=== PATIENT | male | born 1955 | race Caucasian/White ===

== ENCOUNTER 2021-04-01 10:17 | Outpatient (CLI) | payer BC | END 2021-04-01 10:18 | disposition home or self-care (01) | LOC: LAB.S 10:17 | PROVIDERS: ATTEND Family Medicine | DX: D68.51 Activated protein C resistance (principal); I82.5Z1 Chronic embolism and thrombosis of unspecified deep veins of right distal lower extremity | CPT/HCPCS: 36416; 85610 ==

== ENCOUNTER 2021-04-05 10:53 | Outpatient (CLI) | payer BC | END 2021-04-05 10:54 | disposition home or self-care (01) | LOC: LAB.S 10:53 | PROVIDERS: ATTEND Family Medicine | DX: D68.51 Activated protein C resistance (principal); I82.5Z1 Chronic embolism and thrombosis of unspecified deep veins of right distal lower extremity | CPT/HCPCS: 36416; 85610 ==

== ENCOUNTER 2021-04-28 09:05 | Outpatient (CLI) | payer BC | END 2021-04-28 09:06 | disposition home or self-care (01) | LOC: LAB.S 09:05 | PROVIDERS: ATTEND Family Medicine | DX: D68.51 Activated protein C resistance (principal); I82.5Z1 Chronic embolism and thrombosis of unspecified deep veins of right distal lower extremity; Z86.718 Personal history of other venous thrombosis and embolism | CPT/HCPCS: 36416; 85610 ==

== ENCOUNTER 2021-05-25 12:02 | Outpatient (CLI) | payer BC | END 2021-05-25 12:03 | disposition home or self-care (01) | LOC: LAB.S 12:02 | PROVIDERS: ATTEND Family Medicine | DX: D68.51 Activated protein C resistance (principal); I82.5Z1 Chronic embolism and thrombosis of unspecified deep veins of right distal lower extremity | CPT/HCPCS: 36416; 85610 ==

== ENCOUNTER 2021-06-22 12:12 | Outpatient (CLI) | payer BC | END 2021-06-22 12:13 | disposition home or self-care (01) | LOC: LAB.S 12:12 | PROVIDERS: ATTEND Family Medicine | DX: D68.51 Activated protein C resistance (principal); I82.5Z1 Chronic embolism and thrombosis of unspecified deep veins of right distal lower extremity | CPT/HCPCS: 36416; 85610 ==

== ENCOUNTER 2021-07-21 13:01 | Outpatient (CLI) | payer BC | END 2021-07-21 13:02 | disposition home or self-care (01) | LOC: LAB.S 13:01 | PROVIDERS: ATTEND Family Medicine | DX: D68.51 Activated protein C resistance (principal); I82.5Z1 Chronic embolism and thrombosis of unspecified deep veins of right distal lower extremity | CPT/HCPCS: 36416; 85610 ==

== ENCOUNTER 2021-07-30 08:00 | Outpatient (CLI) | payer BC ==
--- NOTE | 2021-07-30 16:33 | XRAY Report ---
PROCEDURE: Foot 3 View LT INDICATIONS: PLANTAR FASCIITIS LEFT FOOT TECHNIQUE: 3 views of the foot were acquired. COMPARISON: None. FINDINGS: BONES: No acute, displaced fracture or dislocation. Small plantar calcaneal enthesophyte. SOFT TISSUES: No focal abnormality. IMPRESSION: 1.No acute osseous abnormality. If there is clinical concern for plantar fasciitis, consider magnetic resonance imaging. Reviewed by: Jeffry Dunn MD on 07/30/2021 4:31 PM PDT Approved by: Jeffry Dunn MD on 07/30/2021 4:31 PM PDT Station ID: [id number]
== END 2021-07-30 23:59 | disposition home or self-care (01) ==
LOC: DI.S 08:00
PROVIDERS: ATTEND Emergency Medicine
DX: M72.2 Plantar fascial fibromatosis (principal)

== ENCOUNTER 2021-08-04 15:25 | Outpatient (CLI) | payer BC | END 2021-08-04 15:26 | disposition home or self-care (01) | LOC: LAB.S 15:25 | PROVIDERS: ATTEND Family Medicine | DX: D68.51 Activated protein C resistance (principal); I82.5Z1 Chronic embolism and thrombosis of unspecified deep veins of right distal lower extremity | CPT/HCPCS: 36416; 85610 ==

== ENCOUNTER 2021-08-30 12:46 | Outpatient (CLI) | payer BC | END 2021-08-30 12:47 | disposition home or self-care (01) | LOC: LAB.S 12:46 | PROVIDERS: ATTEND Family Medicine | DX: D68.51 Activated protein C resistance (principal); I82.5Z1 Chronic embolism and thrombosis of unspecified deep veins of right distal lower extremity | CPT/HCPCS: 36416; 85610 ==

== ENCOUNTER 2021-09-29 16:29 | Outpatient (CLI) | payer BC | END 2021-09-29 16:30 | disposition home or self-care (01) | LOC: LAB.S 16:29 | PROVIDERS: ATTEND Family Medicine | DX: D68.51 Activated protein C resistance (principal); I82.5Z1 Chronic embolism and thrombosis of unspecified deep veins of right distal lower extremity | CPT/HCPCS: 36416; 85610 ==

== ENCOUNTER 2021-10-04 13:41 | Outpatient (CLI) | payer BC | END 2021-10-04 13:42 | disposition home or self-care (01) | LOC: LAB.S 13:41 | PROVIDERS: ATTEND Family Medicine | DX: D68.51 Activated protein C resistance (principal); I82.5Z1 Chronic embolism and thrombosis of unspecified deep veins of right distal lower extremity | CPT/HCPCS: 36416; 85610 ==

== ENCOUNTER 2021-10-11 09:35 | Outpatient (CLI) | payer BC | END 2021-10-11 09:36 | disposition home or self-care (01) | LOC: LAB.S 09:35 | PROVIDERS: ATTEND Family Medicine | DX: D68.51 Activated protein C resistance (principal); I82.5Z1 Chronic embolism and thrombosis of unspecified deep veins of right distal lower extremity | CPT/HCPCS: 36416; 85610 ==

== ENCOUNTER 2021-10-25 08:12 | Outpatient (CLI) | payer BC | END 2021-10-25 08:13 | disposition home or self-care (01) | LOC: LAB.S 08:12 | PROVIDERS: ATTEND Family Medicine | DX: D68.51 Activated protein C resistance (principal); I82.5Z1 Chronic embolism and thrombosis of unspecified deep veins of right distal lower extremity | CPT/HCPCS: 36416; 85610 ==

== ENCOUNTER 2021-11-01 09:04 | Outpatient (CLI) | payer BC | END 2021-11-01 09:05 | disposition home or self-care (01) | LOC: LAB.S 09:04 | PROVIDERS: ATTEND Family Medicine | DX: D68.51 Activated protein C resistance (principal); I82.5Z1 Chronic embolism and thrombosis of unspecified deep veins of right distal lower extremity | CPT/HCPCS: 36416; 85610 ==

== ENCOUNTER 2021-12-15 09:27 | Outpatient (CLI) | payer BC | END 2021-12-15 09:28 | disposition home or self-care (01) | LOC: LAB.S 09:27 | PROVIDERS: ATTEND Family Medicine | DX: D68.51 Activated protein C resistance (principal); I82.5Z1 Chronic embolism and thrombosis of unspecified deep veins of right distal lower extremity | CPT/HCPCS: 36415; 36416; 85610 ==

== ENCOUNTER 2022-01-14 14:57 | Outpatient (CLI) | payer BC | END 2022-01-14 14:58 | disposition home or self-care (01) | LOC: LAB 14:57 | PROVIDERS: ATTEND Family Medicine | DX: D68.51 Activated protein C resistance (principal); I82.5Z1 Chronic embolism and thrombosis of unspecified deep veins of right distal lower extremity | CPT/HCPCS: 36416; 85610 ==

== ENCOUNTER 2022-01-20 13:12 | Outpatient (CLI) | payer BC | END 2022-01-20 13:13 | disposition home or self-care (01) | LOC: LAB.S 13:12 | PROVIDERS: ATTEND Family Medicine | DX: D68.51 Activated protein C resistance (principal); I82.5Z1 Chronic embolism and thrombosis of unspecified deep veins of right distal lower extremity | CPT/HCPCS: 36416; 85610 ==

== ENCOUNTER 2022-02-10 14:09 | Outpatient (CLI) | payer BC | END 2022-02-10 14:10 | disposition home or self-care (01) | LOC: LAB.S 14:09 | PROVIDERS: ATTEND Family Medicine | DX: D68.51 Activated protein C resistance (principal); I82.5Z1 Chronic embolism and thrombosis of unspecified deep veins of right distal lower extremity | CPT/HCPCS: 36416; 85610 ==

== ENCOUNTER 2022-02-11 08:56 | Outpatient (CLI) | payer BC | END 2022-02-11 08:57 | disposition home or self-care (01) | LOC: LAB.S 08:56 | PROVIDERS: ATTEND Family Medicine | DX: D68.51 Activated protein C resistance (principal); I82.5Z1 Chronic embolism and thrombosis of unspecified deep veins of right distal lower extremity | CPT/HCPCS: 36416; 85610 ==

== ENCOUNTER 2022-02-14 08:53 | Outpatient (CLI) | payer BC | END 2022-02-14 08:54 | disposition home or self-care (01) | LOC: LAB.S 08:53 | PROVIDERS: ATTEND Family Medicine | DX: D68.51 Activated protein C resistance (principal); I82.5Z1 Chronic embolism and thrombosis of unspecified deep veins of right distal lower extremity | CPT/HCPCS: 36416; 85610 ==

== ENCOUNTER 2022-02-21 08:44 | Outpatient (CLI) | payer BC | END 2022-02-21 08:45 | disposition home or self-care (01) | LOC: LAB.S 08:44 | PROVIDERS: ATTEND Family Medicine | DX: D68.51 Activated protein C resistance (principal); I82.5Z1 Chronic embolism and thrombosis of unspecified deep veins of right distal lower extremity | CPT/HCPCS: 36416; 85610 ==

== ENCOUNTER 2022-03-01 08:15 | Outpatient (CLI) | payer BC | END 2022-03-01 08:16 | disposition home or self-care (01) | LOC: LAB.S 08:15 | PROVIDERS: ATTEND Family Medicine | DX: D68.51 Activated protein C resistance (principal); I82.5Z1 Chronic embolism and thrombosis of unspecified deep veins of right distal lower extremity | CPT/HCPCS: 36416; 85610 ==

== ENCOUNTER 2022-03-07 10:40 | Outpatient (CLI) | payer BC | END 2022-03-07 10:41 | disposition home or self-care (01) | LOC: LAB.S 10:40 | PROVIDERS: ATTEND Family Medicine | DX: D68.51 Activated protein C resistance (principal); I82.5Z1 Chronic embolism and thrombosis of unspecified deep veins of right distal lower extremity | CPT/HCPCS: 36416; 85610 ==

== ENCOUNTER 2022-03-28 09:01 | Outpatient (CLI) | payer BC | END 2022-03-28 09:02 | disposition home or self-care (01) | LOC: LAB.S 09:01 | PROVIDERS: ATTEND Family Medicine | DX: D68.51 Activated protein C resistance (principal); I82.5Z1 Chronic embolism and thrombosis of unspecified deep veins of right distal lower extremity | CPT/HCPCS: 36416; 85610 ==

== ENCOUNTER 2022-04-25 09:08 | Outpatient (CLI) | payer BC | END 2022-04-25 09:09 | disposition home or self-care (01) | LOC: LAB.S 09:08 | PROVIDERS: ATTEND Family Medicine | DX: D68.51 Activated protein C resistance (principal); I82.5Z1 Chronic embolism and thrombosis of unspecified deep veins of right distal lower extremity | CPT/HCPCS: 36416; 85610 ==

== ENCOUNTER 2022-05-02 09:00 | Outpatient (CLI) | payer BC | END 2022-05-02 09:01 | disposition home or self-care (01) | LOC: LAB.S 09:00 | PROVIDERS: ATTEND Family Medicine | DX: D68.51 Activated protein C resistance (principal); I82.5Z1 Chronic embolism and thrombosis of unspecified deep veins of right distal lower extremity | CPT/HCPCS: 36416; 85610 ==

== ENCOUNTER 2022-05-04 14:31 | Outpatient (CLI) | payer BC | END 2022-05-04 14:32 | disposition home or self-care (01) | LOC: LAB.S 14:31 | PROVIDERS: ATTEND Nurse Practitioner | DX: M10.9 Gout, unspecified (principal); M25.562 Pain in left knee | CPT/HCPCS: 36415; 84550 ==

== ENCOUNTER 2022-05-12 09:54 | Outpatient (CLI) | payer BC | END 2022-05-12 09:55 | disposition home or self-care (01) | LOC: LAB.S 09:54 | PROVIDERS: ATTEND Family Medicine | DX: D68.51 Activated protein C resistance (principal); I82.5Z1 Chronic embolism and thrombosis of unspecified deep veins of right distal lower extremity | CPT/HCPCS: 36416; 85610 ==

== ENCOUNTER 2022-06-08 14:17 | Outpatient (CLI) | payer BC | END 2022-06-08 14:18 | disposition home or self-care (01) | LOC: LAB.S 14:17 | PROVIDERS: ATTEND Family Medicine | DX: D68.51 Activated protein C resistance (principal); I82.5Z1 Chronic embolism and thrombosis of unspecified deep veins of right distal lower extremity | CPT/HCPCS: 36416; 85610 ==

== ENCOUNTER 2022-07-21 09:10 | Outpatient (CLI) | payer OTHER | END 2022-07-21 09:11 | disposition home or self-care (01) | LOC: LAB.S 09:10 | PROVIDERS: ATTEND Family Medicine | DX: D68.51 Activated protein C resistance (principal); I82.5Z1 Chronic embolism and thrombosis of unspecified deep veins of right distal lower extremity | CPT/HCPCS: 36416; 85610 ==

== ENCOUNTER 2022-07-31 09:46 | Emergency (ER) | payer OTHER ==
[2022-07-31 09:54] VITALS: BP 148/109
--- OUTSIDE RECORDS SUMMARY | 2022-07-31 10:29 | EXTERNAL MEDICAL SUMMARY RPT | Continuity of Care Document ---
:1955 Author Organization [facility] Address [address] [place] [address] Phone Care Team Providers Name Role Phone Unavailable Unavailable Unavailable Riky Mahajan-C, Iwona Unavailable Unavailable Candi Vargas, Marita Unavailable Unavailable Allergies No information. Encounters No information. Functional Status No information. Immunizations No information. Medications date description facility 2022-05-04 00:00 [facility] 2022-05-04 00:00 [facility] 2022-05-04 00:00 hydrochlorothiazide [facility] 2022-05-05 00:00 hydrochlorothiazide [facility] 2022-05-05 00:00 hydrochlorothiazide [facility] 2022-05-04 00:00 lisinopril [facility] [place] 2022-05-05 00:00 lisinopril [facility] 2022-05-05 00:00 lisinopril [facility] 2022-05-04 00:00 warfarin [facility] 2022-05-05 00:00 warfarin [facility] 2022-05-05 00:00 warfarin [facility] 2022-05-04 00:00 warfarin [facility] 2022-05-05 00:00 warfarin [facility] 2022-05-05 00:00 warfarin [facility] 2022-05-04 00:00 hydrochlorothiazide [facility] 2022-05-05 00:00 hydrochlorothiazide [facility] 2022-05-05 00:00 hydrochlorothiazide [facility] 2022-05-04 00:00 lisinopril [facility] 2022-05-05 00:00 lisinopril [facility] 2022-05-05 00:00 lisinopril [facility] 2022-05-04 00:00 [facility] 2022-05-04 00:00 [facility] 2022-05-04 00:00 [facility] 2022-05-04 00:00 [facility] 2022-05-04 00:00 gabapentin [facility] 2022-05-05 00:00 gabapentin [facility] 2022-05-05 00:00 gabapentin [facility] 2022-05-04 00:00 hydrochlorothiazide [facility] 2022-05-05 00:00 hydrochlorothiazide [facility] 2022-05-05 00:00 hydrochlorothiazide [facility] 2022-05-04 00:00 lisinopril [facility] 2022-05-05 00:00 lisinopril [facility] 2022-05-05 00:00 lisinopril [facility] 2022-05-04 00:00 lisinopril [facility] 2022-05-05 00:00 lisinopril [facility] 2022-05-05 00:00 lisinopril [facility] [place] [facility] 2022-05-04 00:00 hydrochlorothiazide [facility] 2022-05-05 00:00 hydrochlorothiazide [facility] 2022-05-05 00:00 hydrochlorothiazide [facility] 2022-05-04 00:00 atorvastatin [facility] [place] [facility] 2022-05-05 00:00 atorvastatin [facility] [place] [facility] 2022-05-05 00:00 atorvastatin [facility] [place] [facility] 2022-05-04 00:00 albuterol sulfate [facility] [place] [facility] 2022-05-05 00:00 albuterol sulfate [facility] [place] [facility] 2022-05-05 00:00 albuterol sulfate [facility] 2022-05-04 00:00 albuterol sulfate [facility] 2022-05-05 00:00 albuterol sulfate [facility] 2022-05-05 00:00 albuterol sulfate [facility] 2022-05-04 00:00 gabapentin [facility] [place] [facility] 2022-05-05 00:00 gabapentin [facility] 2022-05-05 00:00 gabapentin [facility] [place] [facility] 2022-05-04 00:00 atorvastatin [facility] [place] [facility] 2022-05-05 00:00 atorvastatin [facility] 2022-05-05 00:00 atorvastatin [facility] [place] [facility] 2022-05-04 00:00 gabapentin [facility] [place] [facility] 2022-05-05 00:00 gabapentin [facility] [place] [facility] 2022-05-05 00:00 gabapentin [facility] 2022-05-04 00:00 atorvastatin [facility] 2022-05-05 00:00 atorvastatin [facility] 2022-05-05 00:00 atorvastatin [facility] 2022-05-04 00:00 atorvastatin [facility] 2022-05-05 00:00 atorvastatin [facility] 2022-05-05 00:00 atorvastatin [facility] 2022-05-04 00:00 albuterol sulfate [facility] 2022-05-05 00:00 albuterol sulfate [facility] 2022-05-05 00:00 albuterol sulfate [facility] 2022-05-04 00:00 [facility] 2022-05-04 00:00 [facility] 2022-05-04 00:00 gabapentin [facility] 2022-05-05 00:00 gabapentin [facility] 2022-05-05 00:00 gabapentin [facility] 2022-05-04 00:00 albuterol sulfate [facility] 2022-05-05 00:00 albuterol sulfate [facility] 2022-05-05 00:00 albuterol sulfate [facility] 2022-05-04 00:00 warfarin [facility] 2022-05-05 00:00 warfarin [facility] 2022-05-05 00:00 warfarin [facility] 2022-05-04 00:00 warfarin [facility] 2022-05-05 00:00 warfarin [facility] 2022-05-05 00:00 warfarin [facility] 2022-05-04 00:00 warfarin [facility] 2022-05-05 00:00 warfarin [facility] 2022-05-05 00:00 warfarin [facility] 2022-05-04 00:00 warfarin [facility] 2022-05-05 00:00 warfarin [facility] 2022-05-05 00:00 warfarin [facility] 2022-05-04 00:00 warfarin [facility] 2022-05-05 00:00 warfarin [facility] 2022-05-05 00:00 warfarin [facility] [place] 2022-05-04 00:00 warfarin [facility] 2022-05-05 00:00 warfarin [facility] 2022-05-05 00:00 warfarin [facility] Problems date description facility 2022-05-04 00:00 Knee pain [facility] [place] 2022-05-04 00:00 Knee pain [facility] [place] 2022-05-04 00:00 Hypertensive disorder [facility] [place] 2022-05-04 00:00 Hypertensive disorder [facility] [place] 2022-05-04 00:00 Unspecified essential hypertension [facility] [place] 2022-05-04 00:00 Unspecified essential hypertension [facility] [place] 2022-05-04 00:00 Pain in joint involving lower leg [facility] 2022-05-04 00:00 Pain in joint involving lower leg [facility] 2022-05-04 00:00 Essential (primary) hypertension [facility] 2022-05-04 00:00 Essential (primary) hypertension [facility] 2022-05-04 00:00 Pain in left knee [facility] 2022-05-04 00:00 Pain in left knee [facility] Procedures date description facility 2022-05-04 00:00 Visit Code Hold [facility] 2022-05-04 00:00 Visit Code Hold [facility] Results/Labs test date author facility value unit interpret ation Result panel 1 (unknown) (no date) (unknown) Walk[facility] (no value) (units ([facility] nown) [facility] Result panel 2 (unknown) (no date) (unknown) Walk-In (no value) (units ([facility] nown) [facility] Social History date description facility 2022-05-04 00:00 Former smoker [facility] 2022-05-04 00:00 Former smoker [facility] Vital Signs date measurement value units 2022-05-04 00:00 BMI 37.10 kg/m2 2022-05-04 00:00 BP_diastolic 106 mmHg 2022-05-04 00:00 BP_systolic 178 mmHg 2022-05-04 00:00 heart_rate 86 /min 2022-05-04 00:00 height_metric 170.18 cm 2022-05-04 00:00 height_standard 67 in 2022-05-04 00:00 respiration_rate 14 /min 2022-05-04 00:00 temperature_metric 36.33 C 2022-05-04 00:00 temperature_standard 97.4 F 2022-05-04 00:00 weight_metric 107.05 kg 2022-05-04 00:00 weight_standard 236 lb
--- NOTE | 2022-07-31 13:28 | ED Physician Documentation ---
History of Present Illness - Stated complaint Stated Complaint: RT ANKLE LACERATION - Chief complaint Chief Complaint: Laceration - Additonal information Additional information: 66-year-old male presents emergency department for evaluation of a right medial foot/ankle laceration sustained when taking a hot out of the freezer which he dropped and subsequently stepped on. This patient is on Coumadin secondary to history of factor V Leiden deficiency. Bleeding currently controlled with pressure. Tetanus is up-to-date Review of Systems Skin: reports: Laceration (s) PD PAST MEDICAL HISTORY - Allergies Allergies/Adverse Reactions: Allergies Allergy/AdvReac Type Severity Reaction Status Date / Time meperidine [From Demerol] Allergy Rash Verified 07/31/22 09:55 sulfamethoxazole Allergy Hives Verified 07/31/22 09:55 [From Septra] trimethoprim [From Septra] Allergy Hives Verified 07/31/22 09:55 PD ED PE EXPANDED - Extremities Extremities: Right foot (V-shaped flap laceration right medial ankle. Neurovascularly intact. No active bleeding.) Results - Vitals Vitals: Vital Signs - 24 hr 07/31/22 09:52 Temperature 36.6 C Heart Rate 87 Respiratory 16 Rate Blood Pressure 148/109 H O2 Saturation 96 Oxygen O2 Source Room air Procedures - Laceration (location) right ankle Length in cm: 2.5 Wound type: Flap Neurovascular status: Sensory intact, Motor intact Tendon involvement: Tendon intact Wound preparation: Irrigated copiously NS Skin layer closure: Dermabond, Steri strips Other: Patient tolerated well, Tetanus UTD PD Medical Decision Making - ED course Complexity details: d/w patient, d/w family ED course: 66-year-old male presents to the emergency department for evaluation of a V- shaped laceration on the right medial ankle sustained when he dropped a pot at home that shattered. He is on Coumadin. I discussed the options of skin closure with him including Dermabond versus sutures and the patient elected Dermabond. Combination of Steri-Strips and Dermabond was placed over the wound with good approximation. We discussed the usual routine wound care as well as emergent return precautions. Tetanus is currently up-to-date Departure - Departure Disposition: 01 Home, Self Care Clinical Impression: Laceration of right foot Qualifiers: Encounter type: initial encounter Qualified Code(s): S91.311A - Laceration without foreign body, right foot, initial encounter Condition: Stable Instructions: ED Laceration Ext Skin Glue Comments: Ashok we closed your laceration with a combination of Steri-Strips and Dermabond or glue. This will simply wear away over the next week or so. It is important not to apply antibiotic ointment to the Dermabond it will cause it to wear away quicker. Try not to get your foot wet in the shower for the next week or so. In general I expect that this will heal well. If you develop any significant fevers, redness have milky drainage or concerns of infection then please return to the ER for a second evaluation.
== END 2022-07-31 13:50 | disposition home or self-care (01) ==
LOC: ED 09:46
DX: S91.311A Laceration without foreign body, right foot, initial encounter (principal); W45.8XXA Other foreign body or object entering through skin, initial encounter; Y93.89 Activity, other specified
CPT/HCPCS: 12001; 99281

== ENCOUNTER 2022-08-03 09:17 | Outpatient (CLI) | payer OTHER | END 2022-08-03 09:18 | disposition home or self-care (01) | LOC: LAB.S 09:17 | PROVIDERS: ATTEND Family Medicine | DX: D68.51 Activated protein C resistance (principal); I82.5Z1 Chronic embolism and thrombosis of unspecified deep veins of right distal lower extremity | CPT/HCPCS: 36416; 85610 ==

== ENCOUNTER 2022-08-10 09:53 | Outpatient (CLI) | payer OTHER | END 2022-08-10 09:54 | disposition home or self-care (01) | LOC: LAB.S 09:53 | PROVIDERS: ATTEND Family Medicine | DX: D68.51 Activated protein C resistance (principal); I82.5Z1 Chronic embolism and thrombosis of unspecified deep veins of right distal lower extremity | CPT/HCPCS: 36416; 85610 ==

== ENCOUNTER 2022-08-18 09:17 | Outpatient (CLI) | payer OTHER | END 2022-08-18 09:18 | disposition home or self-care (01) | LOC: LAB.S 09:17 | PROVIDERS: ATTEND Family Medicine | DX: D68.51 Activated protein C resistance (principal); I82.5Z1 Chronic embolism and thrombosis of unspecified deep veins of right distal lower extremity | CPT/HCPCS: 36416; 85610 ==

== ENCOUNTER 2022-09-01 11:45 | Outpatient (CLI) | payer OTHER | END 2022-09-01 11:46 | disposition home or self-care (01) | LOC: LAB.S 11:45 | PROVIDERS: ATTEND Family Medicine | DX: D68.51 Activated protein C resistance (principal); I82.5Z1 Chronic embolism and thrombosis of unspecified deep veins of right distal lower extremity | CPT/HCPCS: 36416; 85610 ==

== ENCOUNTER 2022-09-08 08:33 | Outpatient (CLI) | payer OTHER | END 2022-09-08 08:34 | disposition home or self-care (01) | LOC: LAB.S 08:33 | PROVIDERS: ATTEND Family Medicine | DX: D68.51 Activated protein C resistance (principal); I82.5Z1 Chronic embolism and thrombosis of unspecified deep veins of right distal lower extremity | CPT/HCPCS: 36416; 85610 ==

== ENCOUNTER 2022-09-26 08:47 | Outpatient (CLI) | payer OTHER | END 2022-09-26 08:48 | disposition home or self-care (01) | LOC: LAB.S 08:47 | PROVIDERS: ATTEND Family Medicine | DX: D68.51 Activated protein C resistance (principal); I82.5Z1 Chronic embolism and thrombosis of unspecified deep veins of right distal lower extremity | CPT/HCPCS: 36416; 85610 ==

== ENCOUNTER 2022-10-12 09:07 | Outpatient (CLI) | payer OTHER | END 2022-10-12 09:08 | disposition home or self-care (01) | LOC: LAB.S 09:07 | PROVIDERS: ATTEND Family Medicine | DX: D68.51 Activated protein C resistance (principal); I82.5Z1 Chronic embolism and thrombosis of unspecified deep veins of right distal lower extremity | CPT/HCPCS: 36416; 85610 ==

== ENCOUNTER 2022-11-07 10:14 | Outpatient (CLI) | payer OTHER | END 2022-11-07 10:15 | disposition home or self-care (01) | LOC: LAB.S 10:14 | PROVIDERS: ATTEND Family Medicine | DX: D68.51 Activated protein C resistance (principal); I82.5Z1 Chronic embolism and thrombosis of unspecified deep veins of right distal lower extremity | CPT/HCPCS: 36416; 85610 ==

== ENCOUNTER 2022-12-06 09:23 | Outpatient (CLI) | payer MEDICARE, OTHER | END 2022-12-06 09:24 | disposition home or self-care (01) | LOC: LAB.S 09:23 | PROVIDERS: ATTEND Family Medicine | DX: D68.51 Activated protein C resistance (principal); I82.5Z1 Chronic embolism and thrombosis of unspecified deep veins of right distal lower extremity | CPT/HCPCS: 36416; 85610 ==

== ENCOUNTER 2022-12-06 15:12 | Emergency (ER) | payer MEDICARE, OTHER ==
[2022-12-06 15:42] LABS: BASOPHILS % (AUTO) 0.3 %; EOSINOPHILS # (AUTO) 0.1 10^3/uL (0.0-0.7); EOSINOPHILS % (AUTO) 1.9 %; HCT - HEMATOCRIT 39.8 % (42.0-52.0); HGB - HEMOGLOBIN 13.3 g/dL (14.0-18.0); LYMPHOCYTES # (AUTO) 1.1 10^3/uL (1.5-3.5); LYMPHOCYTES % (AUTO) 15.4 %; MEAN CORPUSCULAR HEMOGLOBIN 32.5 pg (27.0-31.0); MEAN CORPUSCULAR HGB CONC 33.4 g/dL (32.0-36.0); MEAN CORPUSCULAR VOLUME 97.3 fL (80.0-94.0); MEAN PLATELET VOLUME 10.1 fL (7.4-11.4); MONOCYTES # (AUTO) 0.7 10^3/uL (0.0-1.0); MONOCYTES % (AUTO) 10.2 %; NEUTROPHILS # (AUTO) 5.2 10^3/uL (1.5-6.6); NEUTROPHILS % (AUTO) 71.6 %; PLT - PLATELET COUNT 158 10^3/uL (130-450); RED BLOOD COUNT 4.09 10^6/uL (4.70-6.10); WHITE BLOOD COUNT 7.3 x10^3/uL (4.8-10.8)
[2022-12-06 16:15] LABS: CALCIUM 9.3 mg/dL (8.5-10.3); CREATININE 0.7 mg/dL (0.6-1.3)
[2022-12-06] MEDS ORDERED: iohexoL-300 100 ML VIAL ONE (16:27)
[2022-12-06] MEDS ORDERED: iohexoL-300 100 ML VIAL IVP ONE (16:52)
--- NOTE | 2022-12-06 17:06 | CT Report ---
PROCEDURE: LOWER EXTREMITY W - RT INDICATIONS: NONHEALING WOUND TECHNIQUE: After administration of contrast 3 mm axial sections acquired of the right ankle, with coronal and sa gittal reformats. For radiation dose reduction, the following was used: automated exposure control, adjustment of mA and/or kV according to patient size. CONTRAST: 100ml Omni 300 COMPARISON: None. FINDINGS: Image quality: Excellent. Bones: No acute osseous fracture or dislocation. No focal cortical destruction is seen. No intraosse ous lesion. Soft tissues: Nonspecific heterogeneous edema is seen throughout the lower leg. Varicose veins are n oted throughout the medial and posterior glenoid. Numerous calcifications are seen in the subcutaneou s tissues surrounding the ankle. No significant edema is seen within the deep intermuscular fascial l hollings[place]. No focal nonenhancing fluid collection is seen. Three-vessel arterial enhancement is noted in the distal lower leg. The articular cartilages, ligaments, and tendons are not well evaluated on estrellita dard CT. The lower leg musculature is normal in bulk. No soft tissue gas. IMPRESSION: 1.Nonspecific soft tissue edema throughout the lower leg. No focal fluid collection. No signs of fasc iitis or osteomyelitis. 2.Prominent varicose veins throughout the simultaneous tissues, most notably medially and posteriorly . Consider venous Doppler ultrasound to evaluate for reflux or obstruction. 3.Diffuse subcutaneous soft tissue calcifications, which are of uncertain etiology. Some of these may represent phleboliths. Reviewed by: Andriy Aviles MD on 12/06/2022 5:04 PM PDT Approved by: Andriy Aviles MD on 12/06/2022 5:04 PM PDT Station ID: [id number]
--- NOTE | 2022-12-06 17:12 | ED Physician Documentation ---
PD HPI LOWER EXT INJURY - Stated complaint Stated Complaint: LOWER RT LEG PX / OPEN WOUND - Chief complaint Chief Complaint: Wound - History obtained from History obtained from: Patient - History of Present Illness PD HPI LOW EXT INJURY LOCATION: Right - Additional information Additional information: 67-year-old male with history of venous stasis presents for evaluation of right ankle wound. Patient states that he had an accidental injury where he was cut by a [employer] pot that fell. He states that intermittently over the last several months he has had issues with his previous wound reopening. He was sent in by his primary care doctor's office to evaluate for possible retained foreign body. He states that 5 days ago the wound on his right medial ankle began to open up again and is very painful. Last on antibiotics 2 months ago. Review of Systems Constitutional: denies: Fever, Chills Cardiac: denies: Chest pain / pressure, Palpitations Respiratory: denies: Dyspnea, Cough, Wheezing Skin: reports: Lesions. denies: Rash, Abrasion (s), Laceration (s) Musculoskeletal: reports: Joint pain. denies: Extremity pain, Joint swelling PD PAST MEDICAL HISTORY - Present Medications Home Medications: Ambulatory Orders Medication Instructions Recorded Confirmed Bacitracin Zinc Oint 1 applic TOP BID #1 each 12/06/22 Doxycycline Hyclate [Vibramycin] 100 mg PO BID #20 cap 12/06/22 - Allergies Allergies/Adverse Reactions: Allergies Allergy/AdvReac Type Severity Reaction Status Date / Time meperidine [From Demerol] Allergy Rash Verified 12/06/22 15:18 sulfamethoxazole Allergy Hives Verified 12/06/22 15:18 [From Septra] trimethoprim [From Janra] Allergy Hives Verified 12/06/22 15:18 PD ED PE NORMAL - Vitals Vital signs reviewed: Yes - General General: Alert and oriented X 3, No acute distress, Well developed/nourished - HEENT HEENT: Atraumatic - Cardiac Cardiac: RRR, No murmur - Respiratory Respiratory: No respiratory distress, Clear bilaterally - Abdomen Abdomen: Soft, Non tender, Non distended - Extremities Extremities: No deformity, Normal ROM s pain, No edema, Other (Small 1cm ulceration on medial R ankle. 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, No motor deficit, No sensory deficit, Normal speech Results - Vitals Vitals: Vital Signs - 24 hr 12/06/22 15:18 Temperature 36.6 C Heart Rate 92 Respiratory 16 Rate Blood Pressure 134/90 H O2 Saturation 96 Oxygen O2 Source Room air - Labs Labs: Laboratory Tests 12/06/22 12/06/22 12/06/22 13:38 13:38 15:38 WBC 7.3 RBC 4.09 L Hgb 13.3 L Hct 39.8 L MCV 97.3 H MCH 32.5 H MCHC 33.4 RDW 14.0 Plt Count 158 MPV 10.1 Neut # (Auto) 5.2 Lymph # (Auto) 1.1 L [place] # (Auto) 0.7 Eos # (Auto) 0.1 Baso # (Auto) 0.0 Absolute Nucleated RBC 0.00 Nucleated RBC % 0.0 ESR 9 Sodium 136 Potassium 4.0 Chloride 102 Carbon Dioxide 29 Anion Gap 5.0 L BUN 15 Creatinine 0.7 Estimated GFR (MDRD) 113 Glucose 97 Calcium 9.3 C-Reactive Protein 12/06/22 15:38 WBC RBC Hgb Hct MCV MCH MCHC RDW Plt Count MPV Neut # (Auto) Lymph # (Auto) [place] # (Auto) Eos # (Auto) Baso # (Auto) Absolute Nucleated RBC Nucleated RBC % ESR Sodium Potassium Chloride Carbon Dioxide Anion Gap BUN Creatinine Estimated GFR (MDRD) Glucose Calcium C-Reactive Protein 1.0 PD Medical Decision Making - ED course Complexity details: reviewed results, re-evaluated patient, considered differential, d/w patient ED course: Nontoxic patient presenting for evaluation of intermittent wound reopening in his ankle. There is concern from his primary care physician about possible retained foreign body. I do not palpate a foreign body, however due to the patient's nonhealing wound will order Ct scan and will order sed/crp to evaluate for possible bony infection. I suspect that patient's presentation is related to vascular disease. His pulses are diminished to palpation in his lower extremity. Additionally patient states that occasionally when he walks he gets cramps in his legs. He says that he believes he has been diagnosed with peripheral vascular disease in the past, but does not currently see a vascular surgeon. Laboratory work is reviewed, unremarkable. Sed rate and CRP are within normal limits. CT of the ankle shows no retaied foreign body. Patient counseled of his lab and imaging results. I noted that he may possibly have peripheral arterial disease and recommended that he speak with his primary care physician about referral to vascular surgery. In the meantime will give patient topical and p.o. antibiotics. Departure - Departure Disposition: Home, Self Care Clinical Impression: Ankle wound Condition: Stable Instructions: ED Wound Care Prescriptions: Bacitracin Zinc Oint 1 applic TOP BID #1 each Doxycycline Hyclate [Vibramycin] 100 mg PO BID #20 cap Comments: I RECOMMEND FOLLOWING UP WITH A VASCULAR SURGEON IF YOU CONTINUE TO HAVE ISSUES WITH WOUND HEALING. YOU HAD WEAKER PULSES THAN EXPECTED IN YOUR FOOT WHICH CAN CONTRIBUTE TO POOR WOUND HEALING. Forms: PCP List
[2022-12-06 17:38] VITALS: BP 140/98
== END 2022-12-06 17:34 | disposition home or self-care (01) ==
LOC: ED 15:12
DX: L98.499 Non-pressure chronic ulcer of skin of other sites with unspecified severity (principal); D68.51 Activated protein C resistance; I82.5Z1 Chronic embolism and thrombosis of unspecified deep veins of right distal lower extremity
CPT/HCPCS: 36415; 36416; 73701; 80048; 85025; 85610; 85651; 86140; 99284; Q9967

== ENCOUNTER 2022-12-16 08:57 | Outpatient (CLI) | payer MEDICARE, OTHER | END 2022-12-16 08:58 | disposition home or self-care (01) | LOC: LAB.S 08:57 | PROVIDERS: ATTEND Family Medicine | DX: D68.51 Activated protein C resistance (principal); I82.5Z1 Chronic embolism and thrombosis of unspecified deep veins of right distal lower extremity | CPT/HCPCS: 36416; 85610 ==

== ENCOUNTER 2023-01-05 11:37 | Outpatient (CLI) | payer MEDICARE, OTHER | END 2023-01-05 11:38 | disposition home or self-care (01) | LOC: LAB.S 11:37 | PROVIDERS: ATTEND Family Medicine | DX: D68.51 Activated protein C resistance (principal); I82.5Z1 Chronic embolism and thrombosis of unspecified deep veins of right distal lower extremity | CPT/HCPCS: 36416; 85610 ==

== ENCOUNTER 2023-01-17 12:20 | Outpatient (CLI) | payer MEDICARE, OTHER | END 2023-01-17 12:21 | disposition home or self-care (01) | LOC: LAB 12:20 | PROVIDERS: ATTEND Family Medicine | DX: D68.51 Activated protein C resistance (principal); I82.5Z1 Chronic embolism and thrombosis of unspecified deep veins of right distal lower extremity | CPT/HCPCS: 36416; 85610 ==

== ENCOUNTER 2023-01-26 08:19 | Outpatient (CLI) | payer MEDICARE, OTHER | END 2023-01-26 08:20 | disposition home or self-care (01) | LOC: LAB.S 08:19 | PROVIDERS: ATTEND Family Medicine | DX: D68.51 Activated protein C resistance (principal); I82.5Z1 Chronic embolism and thrombosis of unspecified deep veins of right distal lower extremity | CPT/HCPCS: 36416; 85610 ==

== ENCOUNTER 2023-02-20 14:33 | Outpatient (CLI) | payer MEDICARE, OTHER | END 2023-02-20 14:34 | disposition home or self-care (01) | LOC: LAB.S 14:33 | PROVIDERS: ATTEND Family Medicine | DX: D68.51 Activated protein C resistance (principal); I82.5Z1 Chronic embolism and thrombosis of unspecified deep veins of right distal lower extremity | CPT/HCPCS: 36416; 85610 ==

== ENCOUNTER 2023-02-27 08:00 | Outpatient (CLI) | payer MEDICARE, OTHER ==
--- NOTE | 2023-02-27 17:08 | XRAY Report ---
PROCEDURE: Chest 2 View X-Ray INDICATIONS: CHEST CONGESTION TECHNIQUE: 2 views of the chest were acquired. COMPARISON: None. FINDINGS: Surgical changes and devices: None. Lungs and pleura: No pleural effusions or pneumothorax. Lungs are clear. Mediastinum: Mediastinal contours appear normal. Heart size is normal. Bones and chest wall: No suspicious bony lesions. Overlying soft tissues appear unremarkable. IMPRESSION: No acute cardiopulmonary process. Reviewed by: Mihai Mcallister on 02/27/2023 5:07 PM PDT Approved by: Mihai Mcallister on 02/27/2023 5:07 PM PDT Station ID: [id number]
--- NOTE | 2023-02-27 17:09 | XRAY Report ---
PROCEDURE: Ribs 2 View LT INDICATIONS: CHEST WALL PAIN, LEFT TECHNIQUE: 4 views of the left ribs were acquired. COMPARISON: None. FINDINGS: Surgical changes and devices: None. Bones and chest wall: No fractures or dislocations. No suspicious bony lesions. Overlying soft tis sues appear unremarkable. Lungs and pleura: The visualized lung appears clear. No pleural effusions or pneumothorax are visib le. IMPRESSION: No displaced fracture or pneumothorax. Reviewed by: Mihai Mcallister on 02/27/2023 5:08 PM PDT Approved by: Mihai Mcallister on 02/27/2023 5:08 PM PDT Station ID: [id number]
== END 2023-02-27 23:59 | disposition home or self-care (01) ==
LOC: DI.S 08:00
PROVIDERS: ATTEND Physician Assistant Medical
DX: R07.89 Other chest pain (principal); R09.89 Other specified symptoms and signs involving the circulatory and respiratory systems

== ENCOUNTER 2023-03-20 09:41 | Outpatient (CLI) | payer MEDICARE, OTHER | END 2023-03-20 09:42 | disposition home or self-care (01) | LOC: LAB.S 09:41 | PROVIDERS: ATTEND Family Medicine | DX: D68.51 Activated protein C resistance (principal); I82.5Z1 Chronic embolism and thrombosis of unspecified deep veins of right distal lower extremity | CPT/HCPCS: 36416; 85610 ==

== ENCOUNTER 2023-04-11 08:00 | Outpatient (CLI) | payer MEDICARE, OTHER | END 2023-04-11 23:59 | disposition home or self-care (01) | LOC: LAB.F 08:00 | PROVIDERS: ATTEND Nurse Practitioner Acute Care | DX: Z79.01 Long term (current) use of anticoagulants (principal); Z86.718 Personal history of other venous thrombosis and embolism; D68.51 Activated protein C resistance ==

== ENCOUNTER 2023-04-18 13:50 | Outpatient (CLI) | payer MEDICARE, OTHER | END 2023-04-18 13:51 | disposition home or self-care (01) | LOC: LAB.S 13:50 | PROVIDERS: ATTEND Nurse Practitioner Acute Care | DX: D68.51 Activated protein C resistance (principal); Z79.01 Long term (current) use of anticoagulants; Z86.718 Personal history of other venous thrombosis and embolism | CPT/HCPCS: 36416; 85610 ==

== ENCOUNTER 2023-05-09 08:00 | Outpatient (CLI) | payer MEDICARE, OTHER | END 2023-05-09 08:01 | disposition home or self-care (01) | LOC: LAB.F 08:00 | PROVIDERS: ATTEND Nurse Practitioner Acute Care | DX: D68.51 Activated protein C resistance (principal); Z79.01 Long term (current) use of anticoagulants; Z86.718 Personal history of other venous thrombosis and embolism ==

== ENCOUNTER 2023-05-09 08:45 | Outpatient (CLI) | payer MEDICARE, OTHER ==
[2023-05-09 14:23] LABS: BASOPHILS % (AUTO) 0.7 %; EOSINOPHILS # (AUTO) 0.1 10^3/uL (0.0-0.7); EOSINOPHILS % (AUTO) 3.1 %; HCT - HEMATOCRIT 41.6 % (42.0-52.0); HGB - HEMOGLOBIN 13.7 g/dL (14.0-18.0); LYMPHOCYTES # (AUTO) 1.5 10^3/uL (1.5-3.5); LYMPHOCYTES % (AUTO) 33.9 %; MEAN CORPUSCULAR HEMOGLOBIN 32.5 pg (27.0-31.0); MEAN CORPUSCULAR HGB CONC 32.9 g/dL (32.0-36.0); MEAN CORPUSCULAR VOLUME 98.8 fL (80.0-94.0); MEAN PLATELET VOLUME 11.1 fL (7.4-11.4); MONOCYTES # (AUTO) 0.5 10^3/uL (0.0-1.0); MONOCYTES % (AUTO) 11.5 %; NEUTROPHILS # (AUTO) 2.2 10^3/uL (1.5-6.6); NEUTROPHILS % (AUTO) 50.1 %; PLT - PLATELET COUNT 160 10^3/uL (130-450); RED BLOOD COUNT 4.21 10^6/uL (4.70-6.10); RED CELL DISTRIBUTION WIDTH 13.5 % (12.0-15.0); WHITE BLOOD COUNT 4.5 x10^3/uL (4.8-10.8)
[2023-05-09 14:34] LABS: ALBUMIN 4.1 g/dL (3.2-5.5); ALBUMIN/GLOBULIN RATIO 1.8 (1.0-2.2); ALKALINE PHOSPHATASE 69 IU/L (42-121); ALT ALANINE AMINOTRANSFERASE 26 IU/L (10-60); AST ASPARTATE AMINOTRANSFERASE 25 IU/L (10-42); BILIRUBIN,TOTAL 0.5 mg/dL (0.2-1.0); BUN - BLOOD UREA NITROGEN 17 mg/dL (6-20); CALCIUM 9.3 mg/dL (8.5-10.3); CARBON DIOXIDE - CO2 31 mmol/L (21-32); CHLORIDE 103 mmol/L (101-111); CHOL/HDL RATIO 3.2 (<5.0); CHOLESTEROL 175 mg/dL; CREATININE 0.7 mg/dL (0.6-1.3); GFR - MDRD 113 (>89); GLUCOSE 84 mg/dL (74-104); HDL CHOLESTEROL 55 mg/dL; LDL CHOLESTEROL,CALCULATED 61 mg/dL; LDL/HDL RATIO 1.1 (<3.6); POTASSIUM 4.4 mmol/L (3.5-4.5); SODIUM 142 mmol/L (135-145); TOTAL PROTEIN 6.4 g/dL (6.4-8.9); TRIGLYCERIDES 297 mg/dL (48-352); VLDL CHOLESTEROL 59 mg/dL
== END 2023-05-09 08:46 | disposition home or self-care (01) ==
LOC: LAB.S 08:45
PROVIDERS: ATTEND Nurse Practitioner Acute Care
DX: M1A.9XX0 Chronic gout, unspecified, without tophus (tophi) (principal); Z13.228 Encounter for screening for other metabolic disorders; Z13.220 Encounter for screening for lipoid disorders; Z13.29 Encounter for screening for other suspected endocrine disorder; Z13.0 Encounter for screening for diseases of the blood and blood-forming organs and certain disorders involving the immune mechanism; E78.5 Hyperlipidemia, unspecified
CPT/HCPCS: 36415; 80053; 80061; 83721; 84443; 84550; 85025

== ENCOUNTER 2023-05-12 14:25 | Outpatient (CLI) | payer MEDICARE, OTHER | END 2023-05-12 14:26 | disposition home or self-care (01) | LOC: LAB.S 14:25 | PROVIDERS: ATTEND Nurse Practitioner Acute Care | DX: D68.51 Activated protein C resistance (principal); I82.5Z1 Chronic embolism and thrombosis of unspecified deep veins of right distal lower extremity | CPT/HCPCS: 36416; 85610 ==

== ENCOUNTER 2023-05-29 08:00 | Outpatient (CLI) | payer MEDICARE, OTHER | END 2023-05-29 08:01 | disposition home or self-care (01) | LOC: LAB.F 08:00 | PROVIDERS: ATTEND Nurse Practitioner Acute Care | DX: D68.51 Activated protein C resistance (principal); Z86.718 Personal history of other venous thrombosis and embolism; Z79.01 Long term (current) use of anticoagulants ==

== ENCOUNTER 2023-07-14 15:29 | Outpatient (CLI) | payer MEDICARE, OTHER ==
--- NOTE | 2023-07-14 17:02 | Ultrasound Report ---
PROCEDURE: Duplex Ext Veins Bilateral INDICATIONS: EDEMA TECHNIQUE: Real-time imaging, as well as color and pulse Doppler interrogation, were performed of the deep veins of both legs from the inguinal ligament to the popliteal fossa. Attempted visualization of the calf veins was performed. COMPARISON: None FINDINGS: The deep veins are normally compressible, and free of intraluminal thrombus. Color and pu lse Doppler demonstrate normal phasic intravascular flow. There is normal augmentation response to d istal compression maneuver. Superficial venous thrombosis noted in the right calf IMPRESSION: No deep venous thrombosis of the visualized lower extremities. Right calf subcutaneous superficial venous thrombosis noted Reviewed by: Ashok Carvajal MD on 07/14/2023 4:01 PM [place] Approved by: Ashok Carvajal MD on 07/14/2023 4:01 PM [place] Station ID: [id number]
== END 2023-07-14 15:30 | disposition home or self-care (01) ==
LOC: DI 15:29
PROVIDERS: ATTEND Nurse Practitioner Acute Care
DX: Z86.718 Personal history of other venous thrombosis and embolism (principal); I82.811 Embolism and thrombosis of superficial veins of right lower extremity
CPT/HCPCS: 93970

== ENCOUNTER 2023-08-08 12:27 | Outpatient (CLI) | payer MEDICARE, OTHER ==
--- NOTE | 2023-08-08 13:42 | Ultrasound Report ---
PROCEDURE: Duplex Ext Veins Right INDICATIONS: R LEG PAIN TECHNIQUE: Real-time imaging, as well as color and pulse Doppler interrogation, were performed of the lower extr emity deep veins from the inguinal ligament to the popliteal fossa. Attempted visualization of the ca lf veins was performed. COMPARISON: None. FINDINGS: Occlusive thrombus is present throughout the right greater saphenous vein which appears tor tuous and ectatic throughout its course. Thrombus is present to the level of the confluence with the common femoral vein. The deep veins are normally compressible, and free of intraluminal thrombus. Color and pulse Dopple r demonstrate normal phasic intraluminal flow. There is normal augmentation response to distal compr ession maneuver. Edema is noted throughout the subcutaneous tissues. IMPRESSION: 1. Occlusive thrombus within the right greater saphenous vein. 2. No DVT of the right lower extremity. Reviewed by: Yumiko Plasencia MD on 08/08/2023 1:41 PM PDT Approved by: Yumiko Plasencia MD on 08/08/2023 1:41 PM PDT Station ID: [id number]
== END 2023-08-08 12:28 | disposition home or self-care (01) ==
LOC: DI 12:27
PROVIDERS: ATTEND Internal Medicine
DX: I82.811 Embolism and thrombosis of superficial veins of right lower extremity (principal)

== ENCOUNTER 2023-08-08 13:29 | Emergency (ER) | payer MEDICARE, OTHER ==
[2023-08-08] MEDS ORDERED: iohexoL-300 100 ML VIAL ONE (14:07)
[2023-08-08 14:13] LABS: BASOPHILS % (AUTO) 0.3 %; EOSINOPHILS # (AUTO) 0.2 10^3/uL (0.0-0.7); EOSINOPHILS % (AUTO) 3.3 %; HCT - HEMATOCRIT 40.4 % (42.0-52.0); HGB - HEMOGLOBIN 13.4 g/dL (14.0-18.0); LYMPHOCYTES # (AUTO) 1.3 10^3/uL (1.5-3.5); LYMPHOCYTES % (AUTO) 20.6 %; MEAN CORPUSCULAR HEMOGLOBIN 32.2 pg (27.0-31.0); MEAN CORPUSCULAR HGB CONC 33.2 g/dL (32.0-36.0); MEAN CORPUSCULAR VOLUME 97.1 fL (80.0-94.0); MEAN PLATELET VOLUME 10.5 fL (7.4-11.4); MONOCYTES # (AUTO) 0.7 10^3/uL (0.0-1.0); MONOCYTES % (AUTO) 11.3 %; NEUTROPHILS # (AUTO) 3.9 10^3/uL (1.5-6.6); PLT - PLATELET COUNT 151 10^3/uL (130-450); RED BLOOD COUNT 4.16 10^6/uL (4.70-6.10); RED CELL DISTRIBUTION WIDTH 13.4 % (12.0-15.0); WHITE BLOOD COUNT 6.1 x10^3/uL (4.8-10.8)
[2023-08-08 14:25] LABS: ALBUMIN 3.9 g/dL (3.2-5.5); ALBUMIN/GLOBULIN RATIO 1.5 (1.0-2.2); BILIRUBIN,TOTAL 0.9 mg/dL (0.2-1.0); CALCIUM 9.5 mg/dL (8.5-10.3); CREATININE 0.6 mg/dL (0.6-1.3); MAGNESIUM 1.5 mg/dL (1.7-2.3); POTASSIUM 4.1 mmol/L (3.5-4.5); TOTAL PROTEIN 6.5 g/dL (6.4-8.9)
--- NOTE | 2023-08-08 14:28 | ED Physician Documentation ---
History of Present Illness - Stated complaint Stated Complaint: RT LEG CLOT - Chief complaint Chief Complaint: Ext Problem - Additonal information Additional information: 67-year-old male with history of factor V not currently anticoagulated on anything presents emergency department after finding out that he has an enlarged clot to his right lower extremity. Past medical history of venous insufficiency, factor V, hypertension, hypercholesterolemia, asthma. Patient recently saw criminal justice department chair who removed him from his Coumadin he was on this since 1992 hematology advised that he does not need anymore because of some sort of genetic mutation. He has been off Coumadin since early June he has a known saphenous venous blood clot to the left lower extremity in his calf region and he sees vascular surgeon with Dr. Jackie Valverde and is planning on having a radiofrequency ablation as the holt venectomy to bilateral lower extremities. Patient says that he has been having increased right lower extremity pain as well as increased shortness of breath now for the last week or so he had an outpatient venous duplex complete today and they sent him to the emergency department for possible pulmonary embolism given patient's worsening shortness of breath. Patient says that he was recently started on Advair inhaler but insurance has not been approving it.He denies any chest pain no nausea vomiting diarrhea. PD PAST MEDICAL HISTORY - Past Medical History Past Medical History: Yes Cardiovascular: Hypertension, High cholesterol Respiratory: Asthma - Past Surgical History Past Surgical History: Yes General: Colonoscopy Ortho: Knee replacement - Present Medications Home Medications: Ambulatory Orders Medication Instructions Recorded Confirmed Albuterol 2.5 mg INH ONCE PRN 01/04/23 06/16/23 Atorvastatin Calcium 40 mg PO DAILY 01/04/23 06/16/23 Gabapentin [Neurontin] 300 mg PO BID 01/04/23 06/16/23 Glucos Sul 2Kcl/MSM/Chond/C/Mn 1 each PO QID 01/04/23 06/16/23 [Glucosamine Chondroitin Cap] Krill/Om-3/Dha/Epa/Phospho/Ast 1,000 mg PO DAILY 01/04/23 06/16/23 [Krill Oil 500 mg Softgel] Lactobacillus Combination No.4 1 cap PO DAILY 01/04/23 06/16/23 [Probiotic] Lisinopril [Zestril] 20 mg PO BID 01/04/23 06/16/23 Multivitamin 1 tab PO DAILY 01/04/23 06/16/23 Omeprazole 20 mg PO DAILY 01/04/23 06/16/23 Sildenafil Citrate [Sildenafil] 20 mg PO DAILY MDD 2-5 01/04/23 06/16/23 Vitamin B Complex 1 each PO DAILY 01/04/23 06/16/23 Warfarin [Coumadin] 5 mg PO QPM 01/04/23 06/16/23 Warfarin [Coumadin] 6 mg PO QPM 01/04/23 06/16/23 allopurinoL [Allopurinol] 300 mg PO DAILY 01/04/23 06/16/23 hydroCHLOROthiazide [Hydrodiuril] 25 mg PO DAILY 01/04/23 06/16/23 amLODIPine [Norvasc] 5 mg PO DAILY 06/16/23 06/16/23 Apixaban [Eliquis] 10 mg PO BID 30 Days #120 tab 08/08/23 - Allergies Allergies/Adverse Reactions: Allergies Allergy/AdvReac Type Severity Reaction Status Date / Time meperidine [From Demerol] Allergy Rash Verified 08/08/23 13:48 sulfamethoxazole Allergy Hives Verified 08/08/23 13:48 [From Septra] trimethoprim [From Septra] Allergy Hives Verified 08/08/23 13:48 - Social History Does the pt smoke?: No Smoking Status: Never smoker Does the pt drink ETOH?: No Does the pt have substance abuse?: No - Immunizations Immunizations are current?: Yes - POLST Patient has POLST: No PD ED PE NORMAL - Vitals Vital signs reviewed: Yes - General General: Alert and oriented X 3, No acute distress, Well developed/nourished - HEENT HEENT: Atraumatic, PERRL - Neck Neck: No JVD - Cardiac Cardiac: RRR, No murmur, No gallop, Strong equal pulses - Respiratory Respiratory: No respiratory distress, Clear bilaterally - Abdomen Abdomen: Normal bowel sounds, Non tender - Back Back: No CVA TTP - Derm Derm: Normal color, Warm and dry, Other - Psych Psych: Normal mood - Free text exam Free text exam: . Right lower extremity: Obvious mass to right inner thigh tenderness with palpation. It is about 4 to 5 cm in width. It is mobile fluctuant no erythema Results - Vitals Vitals: Vital Signs - 24 hr 08/08/23 08/08/23 08/08/23 13:41 16:09 18:06 Temperature 36.4 C L Heart Rate 92 88 86 Respiratory 16 18 17 Rate Blood Pressure 142/98 H 136/82 H 140/86 H O2 Saturation 98 97 97 Oxygen O2 Source Room air - Labs Labs: Laboratory Tests 08/08/23 08/08/23 08/08/23 14:03 14:03 14:03 WBC 6.1 RBC 4.16 L Hgb 13.4 L Hct 40.4 L MCV 97.1 H MCH 32.2 H MCHC 33.2 RDW 13.4 Plt Count 151 MPV 10.5 Neut # (Auto) 3.9 Lymph # (Auto) 1.3 L Vigo # (Auto) 0.7 Eos # (Auto) 0.2 Baso # (Auto) 0.0 Absolute Nucleated RBC 0.00 Nucleated RBC % 0.0 PT 11.9 INR 1.1 Sodium 136 Potassium 4.1 Chloride 102 Carbon Dioxide 30 Anion Gap 4.0 L BUN 15 Creatinine 0.6 Estimated GFR (MDRD) 135 Glucose 103 Calcium 9.5 Magnesium 1.5 L Total Bilirubin 0.9 AST 22 ALT 20 Alkaline Phosphatase 77 Total Protein 6.5 Albumin 3.9 Globulin 2.6 Albumin/Globulin Ratio 1.5 Lipase 36 - Rads (name of study) Angio chest CT with and without PE study Relevant Findings:: Final report received, EMP independent interpretation of test, Other (No pulmonary emboli) PD Medical Decision Making - ED course ED course: 67-year-old male presents emergency department for known saphenous venous occlusion. Patient has care with vascular surgeon Dr. Mejia with [facility]. Because the known vascular occlusion has increased in size and moved up to the patient's right inner groin although the venous duplex says that this is not technically a DVT we will treat this as a DVT. Patient was started on Eliquis here in the emergency department. Due to his shortness of breath a CT angio was complete for further evaluation for possible pulmonary emboli. No pulmonary emboli was visualized. Patient does have asthma he is recently prescribed Advair and currently waiting for his insurance to approve this to pick this up outpatient. A prescription of Eliquis was sent to patient's preferred pharmacy he was started on Eliquis here in the emergency department. He was given strict ER return precautions and told to follow-up with his vascular surgeon and let him know about today's visit. He was given a copy of his venous duplex ultrasound. Labs are complete no significant anemia, hemoglobin 13.4, hematocrit 40.4, no leukocytosis, PT/INR within normal limits, no significant electrolyte abnormalities magnesium is slightly suppressed at 1.5 All questions answered patient safe for discharge. Departure - Departure Disposition: 01 Home, Self Care Clinical Impression: Saphenous vein clot Qualifiers: Laterality: right Qualified Code(s): I82.811 - Embolism and thrombosis of superficial veins of right lower extremity Instructions: ED DVT Prescriptions: Apixaban [Eliquis] 10 mg PO BID 30 Days #120 tab Comments: We have found that you have a saphenous venous blood clot we are treating this as a DVT at this point in time given that it has moved up enlarged your right gr oin. We have started you on Eliquis here in the emergency department you will take 10 mg twice a day for total of 7 days, on July 13 that should be when you transition to 5 mg twice a day. As we discussed please follow-up with your vascular surgeon let him know about today's ER visit below you will see the radiology report. As we discussed please have a very low threshold to come back to the emergency department , especially if you are having any shortness of breath, worsening leg pain, chest pain, fevers or chills, or any other concerning symptoms. We have completed a CT of your chest, not seeing any pulmonary embolism at this time. Forms: PCP List Discharge Date/Time: 08/08/23 18:06
[2023-08-08 14:43] LABS: INR 1.1 (0.8-1.2); PT - PROTHROMBIN TIME 11.9 secs (9.9-12.6)
[2023-08-08 16:11] VITALS: O2SAT 97
--- NOTE | 2023-08-08 17:05 | CT Report ---
PROCEDURE: Angio Chest INDICATIONS: SOA, known DVT, CONTRAST: OMNI 300 80 ML TECHNIQUE: After the administration of intravenous contrast, 2 mm axial images were acquired from the pulmonary apices to the posterior costophrenic angles during the arterial phase. In addition, 1 mm lung kernel and 5 mm soft tissue kernel reconstructions were performed. 3-dimensional coronal oblique maximum int ensity projection (MIP) reformats, 8 mm axial MIP, and 5 mm coronal and sagittal MPR reformats were t hen performed through the thorax. For radiation dose reduction, the following was used: automated exp osure control, adjustment of mA and/or kV according to patient size. COMPARISON: None. FINDINGS: Image quality: Excellent. However, the [id number] chosen excludes a small amount of the posterio r intrathoracic contents. Large vessels: No filling defects within the opacified pulmonary arteries, accounting for motion and contrast timing. No evidence of acute aortic syndrome or aortic aneurysm. Lungs and pleura: No consolidation. No pleural effusions. No pneumothorax. 1.4 cm pulmonary nodule, left lower lobe, image 1 of series 6. Mediastinum: Heart size is normal. No pericardial effusion. No large vessel abnormality. No mediastin al adenopathy by size criteria. Chest wall and lower neck: Thyroid is unremarkable. No axillary or supraclavicular adenopathy by size . Bones: No aggressive osseous abnormality. Upper Abdomen: Unremarkable. IMPRESSION: 1. No acute pulmonary emboli. 2. No acute pulmonary process. 3. 1.4 cm noncalcified left basilar lower lobe pulmonary nodule. Comment: Cannot exclude pulmonary metastatic disease. Consider CT abdomen and pelvis. Comparison with previous studies would be helpful if possible to document stability. If no prior studies are availab le for comparison, consider CT-guided biopsy for PET/CT on a nonemergent basis. Reviewed by: Will Hebert MD on 08/08/2023 5:04 PM PDT Approved by: Will Hebert MD on 08/08/2023 5:04 PM PDT Station ID: [id number]
[2023-08-08] MEDS: APIXABAN 5 MG TABLET PO STA (18:00)
[2023-08-08 18:08] VITALS: BP 140/86
[2023-08-08] MEDS: iohexoL-300 100 ML VIAL IVP ONE (21:26)
== END 2023-08-08 18:06 | disposition home or self-care (01) ==
LOC: ED 13:29
DX: I82.811 Embolism and thrombosis of superficial veins of right lower extremity (principal); D68.51 Activated protein C resistance; I10 Essential (primary) hypertension; E78.00 Pure hypercholesterolemia, unspecified
CPT/HCPCS: 36415; 71275; 80053; 83690; 83735; 85025; 85610; 99284; A9270; Q9967

== ENCOUNTER 2023-09-18 13:31 | Outpatient (CLI) | payer MEDICARE, OTHER ==
[2023-09-18] MEDS ORDERED: iohexoL-300 100 ML VIAL ONE (13:35)
[2023-09-18] MEDS ORDERED: DIATRIZOATE MEGLU/DIATRIZO SOD 30 ML BOTTLE PO ONE (13:36)
[2023-09-18 14:07] LABS: CREATININE 0.7 mg/dL (0.6-1.3)
[2023-09-18] MEDS: iohexoL-300 100 ML VIAL IVP ONE (14:42)
[2023-09-18] MEDS: DIATRIZOATE MEGLU/DIATRIZO SOD 30 ML BOTTLE PO ONE (14:43)
--- NOTE | 2023-09-18 16:43 | CT Report ---
PROCEDURE: Abdomen/Pelvis W INDICATIONS: PULMONARY NODULE CONTRAST: [id number] 100 ml TECHNIQUE: After the administration of intravenous contrast, a CT scan of the abdomen and pelvis was performed. Images were recorded and evaluated at appropriate window settings. Reformats: coronal and sagittal. F or radiation dose reduction, the following was used: automated exposure control, adjustment of mA and /or kV according to patient size. COMPARISON: CXR 02/27/2023. CT pulmonary angiogram 08/08/2023. FINDINGS: Image quality: Diagnostic. Lower chest: Left lung base pulmonary nodule measuring 1.7 cm, (8/18), unchanged. A few areas of low density. Punctate calcifications. Asymmetric elevation of the right hemidiaphragm. Liver: Hypodensity in the right lobe of liver, (2/38), unchanged. Gallbladder and biliary tree: No radiopaque stones or wall thickening. No biliary dilation. Spleen: No splenomegaly. Pancreas: No pancreatic ductal dilation. Adrenals: No adrenal nodule. Kidneys and ureters: No hydronephrosis. No renal cystic lesion which requires follow up. No solid mas s. Stomach, bowel and peritoneum: No bowel distension. No pathologic free fluid. Diverticulosis. Normal appendix. Lymph nodes: No central or retroperitoneal adenopathy. Vessels: No infrarenal aortic aneurysm. PELVIS Reproductive organs: Prominent prostate gland. Bladder: No stone. Pelvic lymph nodes: No pelvic adenopathy by size criteria. Bones: No aggressive osseous abnormality. Other: Fat-containing inguinal hernia. IMPRESSION: 1. Left lung base pulmonary nodule measuring 1.7 cm is not significantly changed. Punctate calcificat ions. This could represent a hamartoma. Recommend follow-up chest CT in 6 months. 2. Hypodense focus in the liver is unchanged. This could represent a small cyst or hemangioma. If kno wn malignancy consider further evaluation with liver MRI. 3. No adenopathy. No free fluid. Reviewed by: Rory Craig MD on 09/18/2023 4:42 PM PDT Approved by: Rory Craig MD on 09/18/2023 4:42 PM PDT Station ID: [id number]
== END 2023-09-18 13:32 | disposition home or self-care (01) ==
LOC: LAB 13:31
PROVIDERS: ATTEND Nurse Practitioner Acute Care
DX: R91.1 Solitary pulmonary nodule (principal); R93.2 Abnormal findings on diagnostic imaging of liver and biliary tract; R93.89 Abnormal findings on diagnostic imaging of other specified body structures
CPT/HCPCS: 36415; 74177; 82565; Q9963; Q9967

== ENCOUNTER 2023-11-09 14:25 | Emergency (ER) | payer MEDICARE, OTHER ==
--- NOTE | 2023-11-09 16:16 | ED Physician Documentation ---
History of Present Illness - Stated complaint Stated Complaint: RT THIGH CLOT THAT IS WARM TO TOUCH - Chief complaint Chief Complaint: General - History obtained from History obtained from: Patient - Additonal information Additional information: 67-year-old male who has a history of factor V Leyden deficiency, and multiple prior superficial thromboses in the past presents with right medial upper thigh swelling. He states that he was on Coumadin, he was taken off Coumadin in June by his automatic door mechanic and then subsequently developed a superficial thrombosis of the right thigh. He was started back on Eliquis which she has been compliant with but today noticed some redness and swelling of the right medial thigh earlier today that has improved somewhat. It was tender to the touch. He was concern for possible recurrence of clot. He is following up with vascular vein specialist for surgery but they were unable to do it due to the clot and were waiting for the superficial thrombosis to improve before they could do surgery.He has no chest pain, no difficulty breathing Review of Systems Constitutional: reports: Reviewed and negative Eyes: reports: Reviewed and negative Ears: reports: Reviewed and negative Nose: reports: Reviewed and negative Throat: reports: Reviewed and negative Cardiac: reports: Reviewed and negative Respiratory: reports: Reviewed and negative GI: reports: Reviewed and negative : reports: Reviewed and negative Musculoskeletal: reports: Extremity pain, Extremity swelling PD PAST MEDICAL HISTORY - Past Medical History Past Medical History: Yes Cardiovascular: Hypertension, High cholesterol Respiratory: Asthma - Past Surgical History Past Surgical History: Yes General: Colonoscopy Ortho: Knee replacement - Present Medications Home Medications: Ambulatory Orders Medication Instructions Recorded Confirmed Albuterol 2.5 mg INH ONCE PRN 01/04/23 06/16/23 Atorvastatin Calcium 40 mg PO DAILY 01/04/23 06/16/23 Gabapentin [Neurontin] 300 mg PO BID 01/04/23 06/16/23 Glucos Sul 2Kcl/MSM/Chond/C/Mn 1 each PO QID 01/04/23 06/16/23 [Glucosamine Chondroitin Cap] Krill/Om-3/Dha/Epa/Phospho/Ast 1,000 mg PO DAILY 01/04/23 06/16/23 [Krill Oil 500 mg Softgel] Lactobacillus Combination No.4 1 cap PO DAILY 01/04/23 06/16/23 [Probiotic] Lisinopril [Zestril] 20 mg PO BID 01/04/23 06/16/23 Multivitamin 1 tab PO DAILY 01/04/23 06/16/23 Omeprazole 20 mg PO DAILY 01/04/23 06/16/23 Sildenafil Citrate [Sildenafil] 20 mg PO DAILY MDD 2-5 01/04/23 06/16/23 Vitamin B Complex 1 each PO DAILY 01/04/23 06/16/23 Warfarin [Coumadin] 5 mg PO QPM 01/04/23 06/16/23 Warfarin [Coumadin] 6 mg PO QPM 01/04/23 06/16/23 allopurinoL [Allopurinol] 300 mg PO DAILY 01/04/23 06/16/23 hydroCHLOROthiazide [Hydrodiuril] 25 mg PO DAILY 01/04/23 06/16/23 amLODIPine [Norvasc] 5 mg PO DAILY 06/16/23 06/16/23 Apixaban [Eliquis] 10 mg PO BID 30 Days #120 tab 08/08/23 - Allergies Allergies/Adverse Reactions: Allergies Allergy/AdvReac Type Severity Reaction Status Date / Time meperidine [From Demerol] Allergy Rash Verified 11/09/23 14:33 sulfamethoxazole Allergy Hives Verified 11/09/23 14:33 [From Septra] trimethoprim [From Janra] Allergy Hives Verified 11/09/23 14:33 - Social History Does the pt smoke?: No Smoking Status: Never smoker Does the pt drink ETOH?: No ETOH Use: Wine, Beer Does the pt have substance abuse?: No - Immunizations Immunizations are current?: Yes - POLST Patient has POLST: No PD ED PE NORMAL - Vitals Vital signs reviewed: Yes - General General: Alert and oriented X 3, No acute distress, Well developed/nourished - HEENT HEENT: Atraumatic, Moist mucous membranes - Cardiac Cardiac: RRR, No murmur - Respiratory Respiratory: No respiratory distress, Clear bilaterally - Derm Derm: Normal color, Warm and dry, No rash - Extremities Extremities: Other (Numerous varicose veins and tortuous varicosities on both legs, left calf and right medial thigh primarily. There is mild swelling of the right medial thigh, no erythema, currently nontender.) Results - Vitals Vitals: Vital Signs - 24 hr 11/09/23 14:28 Temperature 36.6 C Heart Rate 97 Respiratory 18 Rate Blood Pressure 128/88 H O2 Saturation 96 Oxygen O2 Source Room air PD Medical Decision Making - ED course Complexity details: reviewed results, re-evaluated patient, considered differential, d/w family ED course: 67-year-old male presented with right medial thigh swelling with concern for possible worsening of his known superficial thrombosis. He is currently on Eliquis and has factor V Leyden. On exam, the erythema and tenderness have improved from earlier today but he continues to have torturous veins, mild swelling of the medial thigh. There is concern for superficial thrombosis therefore ultrasound was obtained which does show an extension of his 2 superficial thrombosis entire length of the leg. No DVT. The patient therefore will continue on Eliquis and then make an appointment with his automatic door mechanic to discuss if he should change to something different or go back to the Coumadin or continue on the Eliquis at this time. No need for hospitalization at this time, return precautions reviewed. Departure - Departure Disposition: 01 Home, Self Care Clinical Impression: Superficial thrombophlebitis Qualifiers: Superficial thrombophlebitis-Involved body area: lower extremity Laterality: right Qualified Code(s): I80.01 - Phlebitis and thrombophlebitis of superficial vessels of right lower extremity Condition: Good Instructions: ED Phlebitis Superficial Comments: Please call to follow up with your automatic door mechanic. They may want to give the Eliquis a little bit more time or change you back to Coumadin or another blood thinner. Continue to do a lot of the supportive measures that you have been doing. If the leg becomes more swollen or more painful, and return to the ER. Forms: PCP List
[2023-11-09 17:18] VITALS: O2SAT 97
[2023-11-09 17:19] VITALS: BP 134/95
--- NOTE | 2023-11-09 17:21 | Ultrasound Report ---
PROCEDURE: Duplex Ext Veins Right INDICATIONS: possible dvt to right upper thigh TECHNIQUE: Real-time imaging, as well as color and pulse Doppler interrogation, were performed of the lower extr emity deep veins from the inguinal ligament to the popliteal fossa. Attempted visualization of the ca lf veins was performed. COMPARISON: 08/08/2023 FINDINGS: The deep veins are normally compressible, and free of intraluminal thrombus. Color and pu lse Doppler demonstrate normal phasic intraluminal flow. There is normal augmentation response to di stal compression maneuver. Interrogation of the superficial venous structures demonstrate persistent nonocclusive thrombus withi n the greater saphenous vein. This appears to extend close to the junction of the greater saphenous v ein and femoral vein. IMPRESSION: No deep venous thrombosis of the visualized lower extremity. Persistent nonocclusive superficial thrombophlebitis of the greater saphenous vein extending in close proximity to the saphenofemoral junction. Reviewed by: Aaron Ventura MD on 11/09/2023 5:19 PM PDT Approved by: Aaron Ventura MD on 11/09/2023 5:19 PM PDT Station ID: [id number]
== END 2023-11-09 17:35 | disposition home or self-care (01) ==
LOC: ED 14:25
DX: I80.01 Phlebitis and thrombophlebitis of superficial vessels of right lower extremity (principal); D68.51 Activated protein C resistance; Z79.01 Long term (current) use of anticoagulants
CPT/HCPCS: 99283; 99284

== ENCOUNTER 2023-12-09 06:39 | Emergency (ER) | payer MEDICARE, OTHER ==
--- NOTE | 2023-12-09 07:15 | ED Physician Documentation ---
History of Present Illness - Stated complaint Stated Complaint: SOA,SHAKES,PX RT ANKLE,FEVER - Chief complaint Chief Complaint: Fever - History obtained from History obtained from: Patient, Family - Additonal information Additional information: 68-year-old gentleman with history of asthma, factor V Leiden with recurrent thromboses, heavy alcohol use, hypertension, hyperlipidemia presents with shakin g chills and fever. He developed shaking chills yesterday afternoon and overnight developed a fever to 102 with pain in his left ankle. He denies runny nose, sore throat, cough, shortness of breath, urinary complaints, abdominal pain. No sick contacts. Does have body aches. PD PAST MEDICAL HISTORY - Past Medical History Past Medical History: Yes Cardiovascular: Hypertension, High cholesterol, Deep vein thrombosis Respiratory: Asthma - Past Surgical History Past Surgical History: Yes General: Colonoscopy Ortho: Knee replacement - Present Medications Home Medications: Ambulatory Orders Medication Instructions Recorded Confirmed Atorvastatin Calcium 60 mg PO DAILY 01/04/23 12/09/23 Krill/Om-3/Dha/Epa/Phospho/Ast 1,000 mg PO DAILY 01/04/23 12/09/23 [Krill Oil 500 mg Softgel] Lisinopril [Zestril] 20 mg PO BID 01/04/23 12/09/23 Multivitamin 1 tab PO DAILY 01/04/23 12/09/23 Omeprazole 20 mg PO DAILY 01/04/23 12/09/23 Vitamin B Complex 1 each PO DAILY 01/04/23 12/09/23 allopurinoL [Allopurinol] 300 mg PO DAILY 01/04/23 12/09/23 hydroCHLOROthiazide [Hydrodiuril] 25 mg PO DAILY 01/04/23 12/09/23 Apixaban [Eliquis] 5 mg PO BID 12/09/23 12/09/23 Metoprolol Tartrate [Lopressor] 25 mg PO BID 12/09/23 12/09/23 cephALEXin [Keflex] 500 mg PO Q6H #40 cap 12/09/23 - Allergies Allergies/Adverse Reactions: Allergies Allergy/AdvReac Type Severity Reaction Status Date / Time meperidine [From Demerol] Allergy Rash Verified 12/09/23 06:57 sulfamethoxazole Allergy Hives Verified 12/09/23 06:57 [From Septra] trimethoprim [From Septra] Allergy Hives Verified 12/09/23 06:57 - Social History Does the pt smoke?: No Smoking Status: Never smoker Does the pt drink ETOH?: No Does the pt have substance abuse?: No - Immunizations Immunizations are current?: Yes - POLST Patient has POLST: No PD ED PE NORMAL - Vitals Vital signs reviewed: Yes - General General: Alert and oriented X 3, No acute distress - HEENT HEENT: PERRL, EOMI - Neck Neck: Supple, no meningeal sign, No bony TTP - Cardiac Cardiac: Other (3 out of 6 decrescendo systolic murmur heard diffusely throughout the anterior chest wall with mild resting tachycardia) - Respiratory Respiratory: No respiratory distress, Clear bilaterally - Abdomen Abdomen: Soft, Non tender - Back Back: No CVA TTP, No spinal TTP - Derm Derm: Normal color, Warm and dry - Extremities Extremities: Other (He has cellulitis of the right ankle from mid scott anteriorly down to dorsal forefoot with some swelling.) - Neuro Neuro: Alert and oriented X 3 Eye Opening: Spontaneous Motor: Obeys Commands Verbal: Oriented GCS Score: 15 Results - Vitals Vitals: Vital Signs - 24 hr 12/09/23 12/09/23 06:45 08:51 Temperature 37.1 C 38 C H Heart Rate 103 H 129 H Respiratory 19 18 Rate Blood Pressure 139/98 H 129/87 H O2 Saturation 97 98 Oxygen O2 Source Room air - Labs Labs: Laboratory Tests 12/09/23 12/09/23 12/09/23 06:45 07:23 07:23 WBC 15.3 H RBC 4.12 L Hgb 13.6 L Hct 40.5 L MCV 98.3 H MCH 33.0 H MCHC 33.6 RDW 14.3 Plt Count 134 MPV 11.3 Neut # (Auto) 13.4 H Lymph # (Auto) 0.7 L Whiteside # (Auto) 1.1 H Eos # (Auto) 0.0 Baso # (Auto) 0.0 Absolute Nucleated RBC 0.00 Nucleated RBC % 0.0 Sodium 135 Potassium 4.1 Chloride 97 L Carbon Dioxide 31 Anion Gap 7.0 BUN 11 Creatinine 0.7 Estimated GFR (MDRD) 113 Glucose 111 H Lactic Acid Calcium 9.7 Magnesium 1.6 L Total Bilirubin 0.9 AST 23 ALT 23 Alkaline Phosphatase 61 Total Protein 6.9 Albumin 4.2 Globulin 2.7 Albumin/Globulin Ratio 1.6 Nasal Adenovirus (PCR) NOT DETECTED Nasal B. parapertussis DNA (PCR) NOT DETECTED Nasal Coronavir 229E PCR NOT DETECTED Nasal Coronavir HKU1 PCR NOT DETECTED Nasal Coronavir NL63 PCR NOT DETECTED Nasal Coronavir OC43 PCR NOT DETECTED Nasal Enterovir/Rhinovir PCR NOT DETECTED Nasal Influenza B PCR NOT DETECTED Nasal Influenza A PCR NOT DETECTED Nasal Parainfluen 1 PCR NOT DETECTED Nasal Parainfluen 2 PCR NOT DETECTED Nasal Parainfluen 3 PCR NOT DETECTED Nasal Parainfluen 4 PCR NOT DETECTED Nasal RSV (PCR) NOT DETECTED Nasal B.pertussis DNA PCR NOT DETECTED Nasal C.pneumoniae (PCR) NOT DETECTED Robert Human Metapneumo PCR NOT DETECTED Nasal M.pneumoniae (PCR) NOT DETECTED Nasal SARS-CoV-2 (PCR) NOT DETECTED 12/09/23 07:32 WBC RBC Hgb Hct MCV MCH MCHC RDW Plt Count MPV Neut # (Auto) Lymph # (Auto) Whiteside # (Auto) Eos # (Auto) Baso # (Auto) Absolute Nucleated RBC Nucleated RBC % Sodium Potassium Chloride Carbon Dioxide Anion Gap BUN Creatinine Estimated GFR (MDRD) Glucose Lactic Acid 1.7 Calcium Magnesium Total Bilirubin AST ALT Alkaline Phosphatase Total Protein Albumin Globulin Albumin/Globulin Ratio Nasal Adenovirus (PCR) Nasal B. parapertussis DNA (PCR) Nasal Coronavir 229E PCR Nasal Coronavir HKU1 PCR Nasal Coronavir NL63 PCR Nasal Coronavir OC43 PCR Nasal Enterovir/Rhinovir PCR Nasal Influenza B PCR Nasal Influenza A PCR Nasal Parainfluen 1 PCR Nasal Parainfluen 2 PCR Nasal Parainfluen 3 PCR Nasal Parainfluen 4 PCR Nasal RSV (PCR) Nasal B.pertussis DNA PCR Nasal C.pneumoniae (PCR) Robert Human Metapneumo PCR Nasal M.pneumoniae (PCR) Nasal SARS-CoV-2 (PCR) PD Medical Decision Making - ED course ED course: He presents with what looks like cellulitis to the right ankle with shaking chills and fever at home. He also has a new murmur but no other signs or symptoms of endocarditis. Will obtain broad laboratory workup and administer cefazolin for cellulitis. He requested repeat ultrasonography of the leg which was still positive for DVT. He has been compliant with the Eliquis, but wanted the repeat ultrasound as he is seeing a vascular surgeon who wants to do an intervention but cannot do it until the DVT is resolved. Discussed with him that it is not resolved. Otherwise workup demonstrates a leukocytosis and mild anemia. Unremarkable CMP, no lactic acidosis and negative [employer] respiratory panel. He received 1 g of Ancef here and Keflex at home. Blood cultures pending on discharge and discussed with him that he would need to return promptly if positive. Departure - Departure Disposition: Home, Self Care Clinical Impression: Murmur, cardiac Cellulitis Qualifiers: Site of cellulitis: extremity Site of cellulitis of extremity: lower extremity Laterality: right Qualified Code(s): L03.115 - Cellulitis of right lower limb Condition: Good Record reviewed to determine appropriate education?: Yes Instructions: Cellulitis Dc Prescriptions: cephALEXin [Keflex] 500 mg PO Q6H #40 cap Comments: As discussed, the spray ii painter tells me your clots in your right leg basically have not changed. No significant improvement nor worsening. You can discuss this with your vascular surgeon. More apropos to the current issue, it looks like you have cellulitis in the right leg. You were noted to have a murmur on examination which had not been noted before at least to your recollection. Because of that you do have blood cultures pending and if we were to call you please return immediately for further evaluation and treatment. Do discuss the murmur as well as your ongoing leg issues with your primary care and vascular surgeons. I sent the prescriptions electronically to the [facility] in [place]. You can take Tylenol and/or ibuprofen as needed for the aches and chills. Forms: PCP List Discharge Date/Time: 12/09/23 08:51
[2023-12-09] MEDS: ceFAZolin 1 GM VIAL IVP STA (07:40)
[2023-12-09] MEDS: SODIUM CHLORIDE 0.9% 1,000 ML IV STA (07:41)
[2023-12-09 07:45] LABS: BASOPHILS % (AUTO) 0.3 %; EOSINOPHILS % (AUTO) 0.1 %; HCT - HEMATOCRIT 40.5 % (42.0-52.0); HGB - HEMOGLOBIN 13.6 g/dL (14.0-18.0); LYMPHOCYTES # (AUTO) 0.7 10^3/uL (1.5-3.5); LYMPHOCYTES % (AUTO) 4.2 %; MEAN CORPUSCULAR HGB CONC 33.6 g/dL (32.0-36.0); MEAN CORPUSCULAR VOLUME 98.3 fL (80.0-94.0); MEAN PLATELET VOLUME 11.3 fL (7.4-11.4); MONOCYTES # (AUTO) 1.1 10^3/uL (0.0-1.0); MONOCYTES % (AUTO) 7.2 %; NEUTROPHILS # (AUTO) 13.4 10^3/uL (1.5-6.6); NEUTROPHILS % (AUTO) 87.7 %; PLT - PLATELET COUNT 134 10^3/uL (130-450); RED BLOOD COUNT 4.12 10^6/uL (4.70-6.10); RED CELL DISTRIBUTION WIDTH 14.3 % (12.0-15.0); WHITE BLOOD COUNT 15.3 x10^3/uL (4.8-10.8)
[2023-12-09 07:59] LABS: ALBUMIN 4.2 g/dL (3.2-5.5); ALBUMIN/GLOBULIN RATIO 1.6 (1.0-2.2); BILIRUBIN,TOTAL 0.9 mg/dL (0.2-1.0); CALCIUM 9.7 mg/dL (8.5-10.3); CREATININE 0.7 mg/dL (0.6-1.3); MAGNESIUM 1.6 mg/dL (1.7-2.3); POTASSIUM 4.1 mmol/L (3.5-4.5); TOTAL PROTEIN 6.9 g/dL (6.4-8.9)
[2023-12-09 08:00] LABS: B. PARAPERTUSSIS- RESP PCR PAN NOT DETECTED; B. PERTUSSIS- RESP PCR PANEL NOT DETECTED; C. PNEUMONIAE- RESP PCR PANEL NOT DETECTED; CORONAVIRUS 229E-RESP PCR NOT DETECTED; CORONAVIRUS HKU1-RESP PCR NOT DETECTED; CORONAVIRUS NL63-RESP PCR NOT DETECTED; CORONAVIRUS OC43-RESP PCR NOT DETECTED; HUMAN METAPNEUMOVIRUS NOT DETECTED; INFLUENZA A- RESP PCR PANEL NOT DETECTED; INFLUENZA B - RESP PCR PANEL NOT DETECTED; M. PNEUMONIAE- RESP PCR PANEL NOT DETECTED; PARAINFLUENZA VIRUS 1 NOT DETECTED; PARAINFLUENZA VIRUS 2 NOT DETECTED; PARAINFLUENZA VIRUS 3 NOT DETECTED; PARAINFLUENZA VIRUS 4 NOT DETECTED; RHINOVIRUS/ENTEROVIRUS NOT DETECTED; RSV- RESP PCR PANEL NOT DETECTED; SARS-CoV-2 -RESP PCR PANEL NOT DETECTED
[2023-12-09 08:59] VITALS: BP 129/87; O2SAT 98
--- NOTE | 2023-12-09 08:59 | Ultrasound Report ---
PROCEDURE: Duplex Ext Veins Bilateral INDICATIONS: Leg pain TECHNIQUE: Real-time imaging, as well as color and pulse Doppler interrogation, were performed of the deep veins of both legs from the inguinal ligament to the popliteal fossa. Attempted visualization of the calf veins was performed. COMPARISON: Same-day ultrasound, 08/08/2023, 07/14/2023 Findings and impression: Positive for DVT. Nonocclusive right thrombus again seen at the greater saphenous vein, near the common femoral junctio n. Possible thrombus seen in the right external iliac. Partial right thrombus seen in the profunda vein. Right posterior tibial and peroneal, and calf super ficial venous thrombi also again seen. The other deep veins, including the left leg, are normally compressible, and free of intraluminal thr ombus. Reviewed by: José Martinez MD on 12/09/2023 8:57 AM PDT Approved by: José Martinez MD on 12/09/2023 8:57 AM PDT Station ID: [id number]
== END 2023-12-09 08:51 | disposition home or self-care (01) ==
LOC: ED 06:39
DX: L03.115 Cellulitis of right lower limb (principal); I82.451 Acute embolism and thrombosis of right peroneal vein; I82.441 Acute embolism and thrombosis of right tibial vein; I82.4Y1 Acute embolism and thrombosis of unspecified deep veins of right proximal lower extremity; I82.491 Acute embolism and thrombosis of other specified deep vein of right lower extremity; R01.1 Cardiac murmur, unspecified; Z79.01 Long term (current) use of anticoagulants
CPT/HCPCS: 36415; 80053; 83605; 83735; 85025; 87040; 87633; 93970; 96374; 99284

== ENCOUNTER 2024-01-02 10:52 | Outpatient (CLI) | payer MEDICARE, OTHER ==
--- NOTE | 2024-01-02 14:05 | XRAY Report ---
PROCEDURE: Knee 4+V LT INDICATIONS: KNEE PAIN,LEFT TECHNIQUE: 4 views of the knee(s) were acquired. COMPARISON: None. FINDINGS: Bones: No fractures or dislocations. No suspicious bony lesions. Tricompartmental joint space dina rowing with associated osteophytosis. Soft tissues: No knee joint effusion. No suspicious soft tissue calcifications or masses. IMPRESSION: No acute bony abnormality. Mild to moderate tricompartmental osteoarthritis. Kellgren-Emiliano scale of osteoarthritis: 2. Reviewed by: Donavan Hemphill MD on 01/02/2024 2:04 PM PDT Approved by: Donavan Hemphill MD on 01/02/2024 2:04 PM PDT Station ID: [id number]
== END 2024-01-02 10:53 | disposition home or self-care (01) ==
LOC: DI 10:52
PROVIDERS: ATTEND Nurse Practitioner Acute Care
DX: M17.12 Unilateral primary osteoarthritis, left knee (principal)

== ENCOUNTER 2024-02-05 12:46 | Outpatient (CLI) | payer MEDICARE, OTHER | END 2024-02-05 12:47 | disposition home or self-care (01) | LOC: DI 12:46 | PROVIDERS: ATTEND Nurse Practitioner Acute Care | DX: I35.0 Nonrheumatic aortic (valve) stenosis (principal); I11.9 Hypertensive heart disease without heart failure | CPT/HCPCS: 93307 ==